=== PATIENT | male | born 1990 | race Caucasian/White ===

== ENCOUNTER 2020-12-18 11:22 | Emergency (ER) | payer OTHER ==
--- NOTE | 2020-12-18 13:22 | ED Physician Documentation ---
PD HPI HEENT - Stated complaint Stated Complaint: LT EAR PX - Chief complaint Chief Complaint: Heent - History obtained from History obtained from: Patient - History of Present Illness Timing - onset: How many weeks ago (2) Timing - duration: Weeks (2) Timing - details: Gradual onset, Still present Location: Left ear Improves: Medication Associated symptoms: No: Fever, Congestion, Rhinorrhea, Swollen nodes, Facial swelling, Cough Similar symptoms before: Diagnosis (cerumen impaction) Recently seen: Other (seen in [facility] 2 weeks ago.) - Additional information Additional information: 30-year-old male who was visiting his father down in [facility] when he went into a swimming pool and he had some pain in his left ear following that and he went into the medics and they examined him told me he had some cerumen and gave him some drops to use in his ears. He has been using them for 2 weeks he has not had any change in his symptoms and he is come now to the emergency depart ment for evaluation. Review of Systems Constitutional: denies: Fever Eyes: denies: Decreased vision Ears: reports: Loss of hearing, Ear pain Nose: denies: Rhinorrhea / runny nose, Congestion Throat: denies: Sore throat Respiratory: denies: Cough GI: denies: Vomiting PD PAST MEDICAL HISTORY - Present Medications Home Medications: Ambulatory Orders Medication Instructions Recorded Confirmed No Known Home Medications 12/18/20 12/18/20 - Allergies Allergies/Adverse Reactions: Allergies Allergy/AdvReac Type Severity Reaction Status Date / Time Penicillins Allergy Unknown Verified 12/18/20 11:41 PD ED PE NORMAL - Vitals Vital signs reviewed: Yes (normal ) - General General: Alert and oriented X 3, No acute distress, Well developed/nourished - HEENT HEENT: Atraumatic, PERRL, EOMI, Other (There is no pain to push on the pinna or pulling the tragus and there is cerumen impaction bilaterally. 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 Following that the cerumen was irrigated easily with 40 mL of warm saline. Following the procedure there was no further cerumen in the ear canal there was minimal inflammation in the canal. PD MEDICAL DECISION MAKING - ED course Complexity details: reviewed results, re-evaluated patient, considered differential, d/w patient ED course: 30-year-old male with pain and fullness in his left ear for 2 weeks has cerumen impaction this is removed with resolution of his symptoms. Departure - Departure Disposition: 01 Home, Self Care Clinical Impression: Impacted cerumen of left ear Condition: Stable Instructions: ED Wax Ear Home Removal, ED Earwax Removal
[2020-12-18 13:28] VITALS: BP 122/74
== END 2020-12-18 13:40 | disposition home or self-care (01) ==
LOC: ED 11:22
DX: H61.23 Impacted cerumen, bilateral (principal)
CPT/HCPCS: 69209; 99281; 99284